=== PATIENT | female | born 1990 | race Caucasian/White ===

== ENCOUNTER 2017-07-27 10:43 | Outpatient (CLI) | payer OTHER ==
[2017-07-27 18:42] LABS: CALCIUM 9.2 mg/dL (8.5-10.3); CREATININE 0.7 mg/dL (0.4-1.0); POTASSIUM 4.5 mmol/L (3.5-5.0)
== END 2017-07-27 10:44 | disposition home or self-care (01) ==
LOC: LAB.F 10:43
PROVIDERS: ATTEND Nurse Practitioner Family
DX: L70.9 Acne, unspecified (principal)
CPT/HCPCS: 36415; 80048

== ENCOUNTER 2018-06-01 15:01 | Emergency (ER) | payer MEDICAID, OTHER ==
[2018-06-01 15:26] VITALS: BP 122/69
[2018-06-01] MEDS ORDERED: BUFFERED LIDOCAINE 10 ML SYRINGE SUBQ STA (16:22)
[2018-06-01] MEDS ORDERED: BUPIVACAINE 0.5% PF 10 ML VIAL SUBQ STA (17:06)
[2018-06-01] MEDS ORDERED: BUPIVACAINE 0.5% PF 10 ML VIAL ONE (17:20)
[2018-06-01] MEDS ORDERED: DEXAMETHASONE 10 MG/ML VIAL PO STA (17:34)
[2018-06-01] MEDS ORDERED: TETANUS/DIPHTHERIA/PERTUSSIS 0.5 ML SYRINGE IM ONE (17:40)
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
[2018-06-01] MEDS ORDERED: CHERRY SYRUP 10 ML UDC PO ONE (17:49)
[2018-06-01] MEDS ORDERED: BACITRACIN OINT TOP ONE (17:49)
[2018-06-01] MEDS ORDERED: DEXAMETHASONE 10 MG/ML VIAL ONE (17:49)
== END 2018-06-01 18:17 | disposition home or self-care (01) ==
LOC: ED 15:01
DX: T63.441A Toxic effect of venom of bees, accidental (unintentional), initial encounter (principal); R22.0 Localized swelling, mass and lump, head; S01.81XA Laceration without foreign body of other part of head, initial encounter; S80.212A Abrasion, left knee, initial encounter; V18.4XXA Pedal cycle driver injured in noncollision transport accident in traffic accident, initial encounter; Y93.55 Activity, bike riding
CPT/HCPCS: 12052; 99283; A9270

== ENCOUNTER 2020-12-06 13:20 | Outpatient (CLI) | payer SELFPAY | END 2020-12-06 23:59 | disposition home or self-care (01) | LOC: LAB.R 13:20 | PROVIDERS: ATTEND Physician Assistant | DX: N30.01 Acute cystitis with hematuria (principal) | CPT/HCPCS: 87077; 87086; 87181 ==